=== PATIENT | male | born 1995 | race African-American/Black ===

== ENCOUNTER 2022-06-29 07:43 | Inpatient (IN) | payer MEDICAID ==
[~2022-06-29] VITALS: Ht 177.8 cm; Wt 78.0 kg
[2022-06-29 09:01] LABS: BASOPHILS % 0.8 % (0.0-2.0); EOSINOPHILS % 1.1 % (0.0-5.0); HEMATOCRIT. 46.7 % (42.0-52.0); HEMOGLOBIN. 15.7 g/dL (14.0-18.0); LYMPHOCYTES % 31.1 % (20.0-50.0); MEAN CORPUSCULAR HEMOGLOBIN 31.2 pg (28.0-32.0); MEAN CORPUSCULAR VOLUME 92.7 fL (80.0-94.0); MEAN PLATELET VOLUME 9.8 fl (7.4-10.4); MONOCYTES % 9.3 % (2.0-8.0); NEUTROPHILS % 57.7 % (40.0-76.0); PLATELET 270 x1000/uL (130-400); RED BLOOD CELL COUNT 5.03 mill/uL (4.7-6.1); RED CELL DISTRIBUTION WIDTH 13.1 % (11.6-14.6)
[2022-06-29 09:07] LABS: CHLORIDE 105 mEq/L (98-107)
[2022-06-29] MEDS ORDERED: LORAZEPAM 2MG/ML CPJ IV ONE (09:15)
[2022-06-29] MEDS ORDERED: OLANZAPINE 10 MG/VIAL IM ONE (09:15)
[2022-06-29 09:16] LABS: ETHANOL BLOOD < 10 mg/dL
[2022-06-29 11:18] LABS: CLARITY URINE CLEAR (CLEAR); COLOR URINE DARK YELLOW (YELLOW); KETONES URINE 3+ (NEGATIVE); LEUKOCYTE ESTERASE URINE TRACE (NEGATIVE); NITRITE URINE NEGATIVE (NEGATIVE); OCCULT BLOOD URINE NEGATIVE (NEGATIVE); PH URINE 5.5 (4.5-8.0); PROTEIN URINE TRACE (NEGATIVE); SPECIFIC GRAVITY URINE 1.037 (1.005-1.030)
[2022-06-29 11:37] LABS: *AMPHETAMINES SCREEN URINE NEGATIVE (NEGATIVE); *BARBITURATES SCREEN URINE NEGATIVE (NEGATIVE); *BENZODIAZEPINES SCREEN URINE NEGATIVE (NEGATIVE); *COCAINE SCREEN URINE NEGATIVE (NEGATIVE); CANNABINOID URINE SCREEN PRESUMTIVE POSITIVE (NEGATIVE); METHADONE URINE SCREEN NEGATIVE (NEGATIVE); OPIATES URINE SCREEN NEGATIVE (NEGATIVE); PHENCYCLIDINE URINE SCREEN NEGATIVE (NEGATIVE)
[2022-06-29] MEDS ORDERED: SODIUM BICARBONATE 8.4% 1 MEQ/ML 50ML SYR IV ONE (12:30)
[2022-06-29] MEDS ORDERED: ALBUTEROL (0.083%) 2.5MG/3ML NEB HHN ONE (12:30)
[2022-06-29] MEDS ORDERED: DEXTROSE 50% WATER 50ML SYRINGE IV ONE (12:30)
[2022-06-29] MEDS ORDERED: INSULIN REGULAR (HUMULIN R) 300UNITS/3ML VIAL IV ONE (12:30)
[2022-06-29] MEDS ORDERED: IPRATROPIUM/ALBUTEROL 0.5-3(2.5)MG/3ML NEB HHN PRN (16:00)
[2022-06-29] MEDS ORDERED: DOCUSATE SODIUM 100MG CAPSULE PO PRN (16:00)
[2022-06-29] MEDS ORDERED: CLONIDINE 0.1MG TABLET PO PRN (16:00)
[2022-06-29] MEDS ORDERED: HYDROCODONE/ACETAMINOPHEN 5/325MG TABLET PO PRN (16:00)
[2022-06-29] MEDS ORDERED: ONDANSETRON HCL 4MG/2ML INJ IV PRN (16:00)
[2022-06-29] MEDS ORDERED: ACETAMINOPHEN 325MG TABLET PO PRN ×2 (16:00)
[2022-06-29] MEDS ORDERED: LORAZEPAM 0.5MG TABLET PO PRN (16:00)
[2022-06-29 18:59] LABS: VITAMIN B12 SERUM 450 pg/mL (211-911)
[2022-06-29 19:18] LABS: FOLIC ACID (FOLATE) SERUM > 20.00 ng/mL (>5.38)
[2022-06-29] MEDS ORDERED: NALOXONE HCL 0.4MG/ML VIAL IV PRN (20:15)
[2022-06-29] MEDS ORDERED: ACETAMINOPHEN 325MG TABLET PO NR (20:30)
[2022-06-29] MEDS: SODIUM CHLORIDE 0.45% 1,000 ML IV SCH (22:00)
[2022-06-29] MEDS: LACTULOSE 20G/30ML UDC PO SCH (22:00)
[2022-06-30] MEDS ORDERED: OLANZAPINE 10 MG/VIAL IM ONE (01:00)
[2022-06-30] MEDS ORDERED: HALOPERIDOL LACTATE 5MG/ML VIAL IM ONE (03:00)
[2022-06-30] MEDS ORDERED: LORAZEPAM 2MG/ML CPJ IM ONE (03:00)
[2022-06-30] MEDS ORDERED: DIPHENHYDRAMINE 50MG/ML VIAL IM ONE (03:00)
[2022-06-30 05:20] LABS: BASOPHILS % 0.7 % (0.0-2.0); EOSINOPHILS % 1.3 % (0.0-5.0); HEMATOCRIT. 44.2 % (42.0-52.0); HEMOGLOBIN. 15.2 g/dL (14.0-18.0); LYMPHOCYTES % 35.2 % (20.0-50.0); MEAN CORPUSCULAR HEMOGLOBIN 31.4 pg (28.0-32.0); MEAN CORPUSCULAR VOLUME 91.2 fL (80.0-94.0); MEAN PLATELET VOLUME 9.9 fl (7.4-10.4); MONOCYTES % 7.9 % (2.0-8.0); NEUTROPHILS % 54.9 % (40.0-76.0); PLATELET 255 x1000/uL (130-400); RED BLOOD CELL COUNT 4.84 mill/uL (4.7-6.1); RED CELL DISTRIBUTION WIDTH 12.8 % (11.6-14.6)
[2022-06-30 05:53] LABS: CHLORIDE 103 mEq/L (98-107)
[2022-06-30] MEDS: LACTULOSE 20G/30ML UDC PO SCH ×3 (06:00→22:00)
[2022-06-30] MEDS: SODIUM CHLORIDE 0.45% 1,000 ML IV SCH ×2 (06:15→16:15)
[2022-06-30] MEDS: OLANZAPINE 5MG TABLET ODT PO SCH ×2 (10:30→21:00)
[2022-06-30] MEDS ORDERED: POTASSIUM CHLORIDE 20MEQ TABLET SR PO NR (13:45)
[2022-06-30] MEDS: LORAZEPAM 2MG/ML CPJ IM PRN (14:47)
[2022-06-30] MEDS: DIPHENHYDRAMINE 50MG/ML VIAL IV PRN (14:47)
[2022-06-30] MEDS: HALOPERIDOL LACTATE 5MG/ML VIAL IM PRN (14:47)
[2022-07-01] MEDS: SODIUM CHLORIDE 0.45% 1,000 ML IV SCH (02:15)
[2022-07-01] MEDS: HALOPERIDOL LACTATE 5MG/ML VIAL IM PRN ×3 (05:18→23:55)
[2022-07-01] MEDS: LORAZEPAM 2MG/ML CPJ IM PRN ×3 (05:18→23:55)
[2022-07-01] MEDS: LACTULOSE 20G/30ML UDC PO SCH ×3 (06:00→21:40)
[2022-07-01] MEDS: OLANZAPINE 5MG TABLET ODT PO SCH ×2 (09:00→21:00)
[2022-07-01] MEDS ORDERED: POTASSIUM CHLORIDE 20MEQ/PACKET PO NR (13:15)
[2022-07-01] MEDS: DEXT 5%/0.9% NACL 1,000 ML IV SCH (14:00)
[2022-07-01] MEDS: DIPHENHYDRAMINE 50MG/ML VIAL IV PRN ×2 (17:03→23:55)
[2022-07-02] MEDS: DEXT 5%/0.9% NACL 1,000 ML IV SCH ×2 (03:45→14:52)
[2022-07-02] MEDS: LACTULOSE 20G/30ML UDC PO SCH ×3 (06:00→22:54)
[2022-07-02 08:30] LABS: BASOPHILS % 0.8 % (0.0-2.0); EOSINOPHILS % 2.3 % (0.0-5.0); HEMATOCRIT. 49.1 % (42.0-52.0); HEMOGLOBIN. 16.4 g/dL (14.0-18.0); LYMPHOCYTES % 40.6 % (20.0-50.0); MEAN CORPUSCULAR HEMOGLOBIN 30.9 pg (28.0-32.0); MEAN CORPUSCULAR VOLUME 92.5 fL (80.0-94.0); MEAN PLATELET VOLUME 9.5 fl (7.4-10.4); MONOCYTES % 9.3 % (2.0-8.0); PLATELET 268 x1000/uL (130-400); RED BLOOD CELL COUNT 5.31 mill/uL (4.7-6.1); RED CELL DISTRIBUTION WIDTH 13.2 % (11.6-14.6)
[2022-07-02 08:38] LABS: CHLORIDE 103 mEq/L (98-107)
[2022-07-02] MEDS: OLANZAPINE 5MG TABLET ODT PO SCH (09:00)
[2022-07-02 10:26] LABS: CREATINE KINASE 5473 IU/L (39-308)
[2022-07-02] MEDS: SODIUM BICARBONATE 50 MEQ in SODIUM CHLORIDE 0.45% 1,000 ML IV SCH ×2 (17:00→22:55)
[2022-07-02 19:35] LABS: CREATINE KINASE 4872 IU/L (39-308)
[2022-07-03 06:13] LABS: BASOPHILS % 1.1 % (0.0-2.0); EOSINOPHILS % 4.5 % (0.0-5.0); HEMATOCRIT. 44.1 % (42.0-52.0); HEMOGLOBIN. 14.7 g/dL (14.0-18.0); LYMPHOCYTES % 41.3 % (20.0-50.0); MEAN CORPUSCULAR HEMOGLOBIN 30.7 pg (28.0-32.0); MEAN CORPUSCULAR VOLUME 91.6 fL (80.0-94.0); MEAN PLATELET VOLUME 9.2 fl (7.4-10.4); MONOCYTES % 9.7 % (2.0-8.0); NEUTROPHILS % 43.4 % (40.0-76.0); PLATELET 248 x1000/uL (130-400); RED BLOOD CELL COUNT 4.81 mill/uL (4.7-6.1); RED CELL DISTRIBUTION WIDTH 12.8 % (11.6-14.6)
[2022-07-03 06:22] LABS: CHLORIDE 103 mEq/L (98-107)
[2022-07-03 06:42] LABS: CREATINE KINASE 3987 IU/L (39-308)
[2022-07-03] MEDS: SODIUM BICARBONATE 50 MEQ in SODIUM CHLORIDE 0.45% 1,000 ML IV SCH ×3 (07:00→22:22)
[2022-07-03] MEDS: LACTULOSE 20G/30ML UDC PO SCH ×3 (07:18→22:00)
[2022-07-03] MEDS: SODIUM CHLORIDE 0.9% 1,000 ML IV SCH ×2 (08:30→16:57)
[2022-07-03 15:00] VITALS: BP 126/82
[2022-07-03 18:33] VITALS: BP 126/82
[2022-07-03 20:00] VITALS: BP 117/88
[2022-07-04] VITALS: BP 127/88
[2022-07-04 04:00] VITALS: BP 110/68
[2022-07-04] MEDS: SODIUM CHLORIDE 0.9% 1,000 ML IV SCH ×2 (04:30→14:46)
[2022-07-04 06:37] LABS: HEMATOCRIT 42.5 % (42.0-52.0); HEMOGLOBIN 14.4 g/dL (14.0-18.0); MEAN CORPUSCULAR VOLUME 91.5 fL (80.0-94.0); PLATELET 254 x1000/uL (130-400); RED BLOOD CELL COUNT 4.64 mill/uL (4.7-6.1); RED CELL DISTRIBUTION WIDTH 12.7 % (11.6-14.6)
[2022-07-04] MEDS: SODIUM BICARBONATE 50 MEQ in SODIUM CHLORIDE 0.45% 1,000 ML IV SCH (06:59)
[2022-07-04 07:05] LABS: CHLORIDE 107 mEq/L (98-107)
[2022-07-04 07:28] LABS: CREATINE KINASE 2604 IU/L (39-308); PHOSPHORUS 3.8 mg/dL (2.5-4.9)
[2022-07-04 08:32] VITALS: BP 125/81
[2022-07-04 11:24] VITALS: BP 123/82
[2022-07-04 16:03] VITALS: BP 115/81
[2022-07-04 20:00] VITALS: BP 120/79
[2022-07-05] VITALS: BP 129/81
[2022-07-05 04:00] VITALS: BP 117/80
[2022-07-05 07:36] LABS: EOSINOPHILS % 3.9 % (0.0-5.0); HEMATOCRIT. 46.8 % (42.0-52.0); HEMOGLOBIN. 15.8 g/dL (14.0-18.0); LYMPHOCYTES % 44.5 % (20.0-50.0); MEAN CORPUSCULAR HEMOGLOBIN 30.9 pg (28.0-32.0); MEAN CORPUSCULAR VOLUME 91.4 fL (80.0-94.0); MEAN PLATELET VOLUME 10.6 fl (7.4-10.4); MONOCYTES % 8.1 % (2.0-8.0); NEUTROPHILS % 42.5 % (40.0-76.0); PLATELET 278 x1000/uL (130-400); RED BLOOD CELL COUNT 5.12 mill/uL (4.7-6.1); RED CELL DISTRIBUTION WIDTH 12.8 % (11.6-14.6)
[2022-07-05 07:47] LABS: CHLORIDE 104 mEq/L (98-107)
[2022-07-05 08:11] LABS: CREATINE KINASE 1897 IU/L (39-308)
[2022-07-05] MEDS: SODIUM CHLORIDE 0.9% 1,000 ML IV SCH (10:30)
[2022-07-05 12:00] VITALS: BP 127/88
[2022-07-05 16:00] VITALS: BP 126/65
[2022-07-05 20:00] VITALS: BP 118/81
[2022-07-05] MEDS: DIPHENHYDRAMINE 50MG/ML VIAL IV PRN (21:31)
[2022-07-06] VITALS: BP 119/78
[2022-07-06 04:00] VITALS: BP 113/77
[2022-07-06 08:00] VITALS: BP 117/75
[2022-07-06 09:51] LABS: CREATINE KINASE 812 IU/L (39-308)
[2022-07-06 12:00] VITALS: BP 124/79
[2022-07-06] MEDS ORDERED: HALO5TAB2 PO (15:19)
[2022-07-06] MEDS ORDERED: BENZ0.5T43 PO (15:19)
[2022-07-06] MEDS ORDERED: BENZTROPINE MESYLATE 0.5MG TABLET PO SCH (21:00)
[2022-07-06] MEDS ORDERED: HALOPERIDOL 5MG TABLET PO SCH (21:00)
== END 2022-07-06 15:04 | disposition home or self-care (01) | DRG 351 ==
LOC: ER 07:43 → MICUSO 12:27 → 6EST 07-03 16:15
PROVIDERS: ADMIT Family Medicine Adult Medicine; ATTEND Family Medicine Adult Medicine
DX: M62.82 Rhabdomyolysis (principal); G93.40 Encephalopathy, unspecified; E72.20 Disorder of urea cycle metabolism, unspecified; F29 Unspecified psychosis not due to a substance or known physiological condition; F12.929 Cannabis use, unspecified with intoxication, unspecified; Z20.822 Contact with and (suspected) exposure to COVID-19; F25.9 Schizoaffective disorder, unspecified; Z78.1 Physical restraint status; Z91.14 Patient's other noncompliance with medication regimen
CPT/HCPCS: 36415; 71045; 80048; 80053; 80305; 80320; 81003; 82140; 82550; 82607; 82746; 82962; 83735; 84100; 84132; 84484; 85025; 85027; 87426; 93005; 94640; 99285; J1200; J1630; J1815; J2060; J3490; J7030; J7042; G0480